=== PATIENT | female | born 1985 | race Hispanic/Latino ===

== ENCOUNTER 2018-09-02 18:26 | Emergency (ER) | payer MEDICAID, OTHER | END 2018-09-02 19:28 | disposition home or self-care (01) | LOC: EDH 18:26 | DX: J10.1 Influenza due to other identified influenza virus with other respiratory manifestations (principal) ==

== ENCOUNTER 2019-03-04 08:44 | Emergency (ER) | payer OTHER ==
[2019-03-04] MEDS ORDERED: CEFTRIAXONE SODIUM 500 MG VIAL ONE (09:32)
[2019-03-04] MEDS ORDERED: FLUCONAZOLE 100 MG TAB ONE (09:32)
[2019-03-04] MEDS ORDERED: LIDOCAINE HCL-MPF 1% 2ML VIAL ONE (09:33)
[2019-03-04] MEDS ORDERED: AZITHROMYCIN 250 MG TABLET PO ONE (09:33)
[2019-03-04] MEDS ORDERED: ONDANSETRON ODT 4 MG TAB ONE (09:33)
[2019-03-04 09:34] LABS: APPEARANCE,URINE Clear (CLEAR); BILIRUBIN,URINE Negative (NEGATIVE); COLOR,URINE Yellow (YELLOW); GLUCOSE, URINE (UA) Negative (NEGATIVE); KETONES,URINE Negative (NEGATIVE); LEUKOCYTE ESTERASE ,URINE Small (NEGATIVE); NITRATE,URINE Negative (NEGATIVE); OCCULT BLOOD,URINE Negative (NEGATIVE); PH,URINE 5.5 (5.0-8.0); PROTEIN,URINE Negative (NEGATIVE)
[2019-03-04 09:41] LABS: HCG,QUAL RESULT NEGATIVE (NEGATIVE)
[2019-03-04 09:46] LABS: MUCUS,URINE Few LPF (None Seen); SQUAMOUS EPITHELIAL CELL,UR Few /HPF (0-2)
[2019-03-04 09:47] LABS: BACTERIA,URINE Rare /HPF (None Seen)
[2019-03-04 09:49] LABS: RBC,URINE 0-1 /HPF (0-1)
== END 2019-03-04 10:12 | disposition home or self-care (01) ==
LOC: EDH 08:44
DX: N76.0 Acute vaginitis (principal); A64 Unspecified sexually transmitted disease; Z98.51 Tubal ligation status; Z72.0 Tobacco use
CPT/HCPCS: 81001; 81025; 87486; 87797; 96372; 99284; J0696; J3490

== ENCOUNTER 2019-03-19 15:14 | Emergency (ER) | payer OTHER | END 2019-03-19 16:13 | disposition home or self-care (01) | LOC: EDH 15:14 | DX: Z11.3 Encounter for screening for infections with a predominantly sexual mode of transmission (principal); Z72.0 Tobacco use | CPT/HCPCS: 99281 ==

== ENCOUNTER 2019-04-05 23:52 | Emergency (ER) | payer OTHER ==
[2019-04-06 00:52] LABS: BASOPHILS % (AUTO) 0.5 % (0.0-5.0); EOSINOPHILS % (AUTO) 3.7 % (0.0-8.0); HEMATOCRIT 40.8 % (36-48); LYMPHOCYTES % (AUTO) 22.7 % (21.0-51.0); MEAN CORPUSCULAR HEMOGLOBIN 29.9 pg (27.0-33.0); MEAN CORPUSCULAR HGB CONC 33.6 g/dL (32.0-36.0); MEAN CORPUSCULAR VOLUME 88.8 fL (79-99); MONOCYTES % (AUTO) 9.2 % (3.0-13.0); NEUTROPHILS % (AUTO) 63.9 % (40.0-77.0); PLATELET COUNT (AUTO) 245 K/uL (130-400); RED BLOOD CELL COUNT(AUTO) 4.59 MIL/uL (4.00-5.50); RED CELL DISTRIBUTION WIDTH 14.1 % (11.0-15.5); WHITE BLOOD COUNT (AUTO) 9.2 K/uL (4.8-10.8)
[2019-04-06 01:01] LABS: CARBON DIOXIDE 29 mmol/L (21-32); CHLORIDE 99 mmol/L (101-111); CREATININE 0.8 mg/dL (0.5-1.5); GLOMERULAR FILTR. RATE CALC 88 mL/min (>60); GLUCOSE,RANDOM 95 mg/dL (70-105); POTASSIUM 3.2 mmol/L (3.5-5.1); SODIUM SERUM 138 mmol/L (136-145); UREA NITROGEN, BLOOD 19 mg/dL (7-18)
[2019-04-06 01:04] LABS: INR 0.97 (0.85-1.15); PARTIAL THROMBOPLASTIN TIME 28.8 SEC (26.3-35.5); PROTHROMBIN TIME 10.2 SEC (9.6-11.6)
[2019-04-06 01:08] LABS: ALANINE AMINOTRANSFERASE 21 U/L (12-78); ALBUMIN 3.4 g/dL (3.5-5.0); ASPARTATE AMINOTRANSFERASE 18 U/L (10-37); BILIRUBIN,TOTAL 0.5 mg/dL (0.2-1.0); TOTAL PROTEIN, SERUM 7.4 g/dL (6.0-8.3)
[2019-04-06 01:22] LABS: B-TYPE NATRIURETIC PEPTIDE 5 pg/mL (0-100)
[2019-04-06 01:23] LABS: ALCOHOL, BLOOD < 3 mg/dL (0-10)
[2019-04-06 01:24] LABS: APPEARANCE,URINE Turbid (CLEAR); BILIRUBIN,URINE Small (NEGATIVE); COLOR,URINE Dark Yellow (YELLOW); GLUCOSE, URINE (UA) Negative (NEGATIVE); KETONES,URINE Trace mg/dL (NEGATIVE); LEUKOCYTE ESTERASE ,URINE Large (NEGATIVE); NITRATE,URINE Negative (NEGATIVE); OCCULT BLOOD,URINE Nonhemolyzed Trace (NEGATIVE); PH,URINE 5.5 (5.0-8.0); PROTEIN,URINE POS 1+ mg/dL (NEGATIVE)
[2019-04-06 01:30] LABS: BACTERIA,URINE Moderate /HPF (None Seen); RBC,URINE 0-1 /HPF (0-1); SQUAMOUS EPITHELIAL CELL,UR Few /HPF (0-2); TRICHOMONAS,URINE Many /LPF (None Seen); WBC,URINE 26-50 /HPF (0-1); YEAST,URINE BUDDING Moderate /HPF (None Seen)
[2019-04-06 01:31] LABS: HCG,QUAL RESULT NEGATIVE (NEGATIVE)
[2019-04-06 01:33] LABS: AMPHET/METH SCREEN,URINE NEGATIVE (NEGATIVE); BARBITURATE SCREEN, URINE NEGATIVE (NEGATIVE); BENZODIAZEPINES SCREEN,URINE NEGATIVE (NEGATIVE); CANNABINOID SCREEN,URINE POSITIVE (NEGATIVE); COCAINE SCREEN,URINE POSITIVE (NEGATIVE); OPIATE SCREEN,URINE NEGATIVE (NEGATIVE); PHENCYCLIDINE SCREEN,URINE NEGATIVE (NEGATIVE)
[2019-04-06 01:55] LABS: ERYTHROCYTE SEDIMENTATION RATE 29 MM/HR (0-20)
[2019-04-06] MEDS ORDERED: CEFTRIAXONE SODIUM 500 MG VIAL ONE (02:14)
[2019-04-06] MEDS ORDERED: AZITHROMYCIN 250 MG TABLET PO ONE (02:15)
[2019-04-06] MEDS ORDERED: DOXYCYCLINE HYCLATE 100 MG TABLET PO ONE (02:15)
[2019-04-06] MEDS ORDERED: KETOROLAC TROMETHAMINE 30MG/ML ONE (02:32)
== END 2019-04-06 04:10 | disposition home or self-care (01) ==
LOC: EDH 23:52
DX: L03.116 Cellulitis of left lower limb (principal); L03.115 Cellulitis of right lower limb; N39.0 Urinary tract infection, site not specified; F14.10 Cocaine abuse, uncomplicated; F12.10 Cannabis abuse, uncomplicated
CPT/HCPCS: 36415; 80053; 80305; 81001; 81025; 83605; 83880; 85025; 85610; 85651; 85730; 86140; 87088; 96374; 96375; 99284; G0480; J0696; J1885

== ENCOUNTER 2019-04-11 17:52 | Emergency (ER) | payer OTHER | END 2019-04-11 18:14 | disposition home or self-care (01) | LOC: EDH 17:52 | DX: K59.00 Constipation, unspecified (principal); Z98.51 Tubal ligation status | CPT/HCPCS: 99281 ==

== ENCOUNTER 2020-01-21 18:06 | Emergency (ER) | payer OTHER | END 2020-01-21 20:42 | disposition home or self-care (01) | LOC: EDH 18:06 | DX: R07.89 Other chest pain (principal); F19.10 Other psychoactive substance abuse, uncomplicated; I10 Essential (primary) hypertension; Z72.0 Tobacco use ==